=== PATIENT | male | born 1970 ===

== ENCOUNTER 2024-04-10 13:59 | Outpatient (CLI) | payer OTHER, SELFPAY ==
--- NOTE | 2024-04-10 10:48 | DI.RAD_ITS ---
Exam(s) XR SHOULDER LT COMPLETE 2+V EXAM: XR SHOULDER LT COMPLETE 2+V CLINICAL HISTORY: left shoulder pain. TECHNIQUE: 2D digital imaging was performed. Three views. COMPARISON: No exams were available for comparison FINDINGS: BONES: No acute fracture is present. No bony destructive lesion is seen. JOINTS: No dislocation present. Mild spurring at the glenoid. Mild spurring at the greater tuberosi ty. The AC joint is unremarkable. SOFT TISSUE: Normal. IMPRESSION: Mild degenerative changes. DATA REPOSITORY: RADIATION DOSE DELIVERED:
== END 2024-04-10 14:00 | disposition home or self-care (01) ==
LOC: DIORS 14:02
PROVIDERS: Visit Provider Physician Assistant
DX: M19.012 Primary osteoarthritis, left shoulder (principal)
CPT/HCPCS: 73030

== ENCOUNTER 2024-08-09 01:11 | Outpatient (CLI) | payer OTHER, SELFPAY ==
--- NOTE | 2024-08-09 07:30 | DI.RAD_ITS ---
Exam(s) RF JOINT INJ. FLUORO GUID RAD EXAM: RF JOINT INJ. FLUORO GUID RAD CLINICAL HISTORY: l shoulder pain,arthritis lt glenohumeral joint, m19.012. The Patient has had per sistent left shoulder pain. Noninvasive measures have been tried. To serve as both diagnostic and t herapeutic, an injection under fluoroscopy was recommended. The risks of the procedure were discusse d with their Orthopedic provider and the patient elected to proceed. TECHNIQUE: 2D and realtime digital imaging was performed. CONTRAST MATERIAL: Water soluble contrast was utilized. COMPARISON: No exams were available for comparison FINDINGS: The Patient was greeted in the fluoroscopy room. The correct side was identified and the consent was reviewed with the patient and was signed. The patient was properly positioned on the fluoroscopy ta ble. The left shoulderwas then prepped with Chloraprep and draped. The left shoulder injection star ting point was identified by the bony landmarks and fluoroscopy. The skin and soft tissue in the tra ct of the injection was anesthetized with 1% Lidocaine. A spinal needle was then inserted into the l eft shoulder joint at the level of the glenohumeral joint under fluoroscopic guidance. A small amoun t of Omnipaque solution was injected to confirm intraarticular placement. Once confirmed, the left s houlder joint was injected with 5cc of a solution containing 0.5% Bupivaine and 80 mg of Depo-Medrol. A bandaid was placed on the injection site. The patient tolerated the procedure well and left the department in good condition. IMPRESSION: Successful left shoulder injection. RADIATION DOSE DELIVERED: Michealr=2.10 mGy
== END 2024-08-09 01:31 ==
LOC: DI 01:11
PROVIDERS: Visit Provider Student in an Organized Health Care Education/Training Program
DX: M19.012 Primary osteoarthritis, left shoulder (principal)
CPT/HCPCS: 20610; 77002